=== PATIENT | female | born 1985 ===

== ENCOUNTER 2017-03-23 19:35 | Observation (INO) | payer MEDICAID ==
[2017-03-23 19:35] VITALS: BMI 26.8
[2017-03-23] MEDS ORDERED: Sodium Chloride 0.9% 1,000 ML IV STA ×2 (20:09→22:04)
--- NOTE | 2017-03-23 20:54 | ED PDOC ---
HPI: General Adult Time Seen by Provider: 03/23/17 19:53 Chief Complaint (Nursing): Dizziness/Lightheaded Chief Complaint (Provider): Vomiting History Per: Patient History/Exam Limitations: no limitations Onset/Duration Of Symptoms: Days (x2 days) Current Symptoms Are (Timing): Still Present Additional Complaint(s): 31 y/o female presents to the emergency department with a complaint of nausea, non-bilious vomiting, and chills x2 days. Reports experiencing similar episodes in the past. Denies fever, abdominal pain, diarrhea, constipation and diarrhea. Of note, patient had questionable diagnosis of multiple sclerosis when she was . Past Medical History Reviewed: Historical Data, Nursing Documentation, Vital Signs Vital Signs: Last Vital Signs Temp 99.1 F 03/24/17 15:47 Pulse 69 03/24/17 15:47 Resp 17 03/24/17 15:47 BP 118/74 03/24/17 15:47 Pulse Ox 100 03/24/17 15:47 - Medical History PMH: Gastritis, Multiple Sclerosis Denies: HIV, Pancreatitis, Chronic Kidney Disease - Surgical History Surgical History: No Surg Hx - Family History Family History: States: Unknown Family Hx - Immunization History Hx Tetanus Toxoid Vaccination: No Hx Influenza Vaccination: No Hx Pneumococcal Vaccination: No - Home Medications Home Medications: Ambulatory Orders Medication Instructions Recorded No Known Home Med 03/24/17 - Allergies Allergies/Adverse Reactions: Allergies Allergy/AdvReac Type Severity Reaction Status Date / Time No Known Allergies Allergy Verified 03/23/17 19:37 Review of Systems ROS Statement: Except As Marked, All Systems Reviewed And Found Negative Constitutional: Positive for: Chills. Negative for: Fever Gastrointestinal: Positive for: Nausea, Vomiting (Non bilious). Negative for: Abdominal Pain, Diarrhea, Constipation Physical Exam - Reviewed Nursing Documentation Reviewed: Yes Vital Signs Reviewed: Yes - Physical Exam Appears: Positive for: Non-toxic, In Acute Distress (GI distress) Head Exam: Positive for: ATRAUMATIC, NORMAL INSPECTION, NORMOCEPHALIC Skin: Positive for: Normal Color, Warm, Dry Neck: Positive for: Normal, Supple Cardiovascular/Chest: Positive for: Regular Rate, Rhythm. Negative for: Murmur Respiratory: Positive for: Normal Breath Sounds. Negative for: Accessory Muscle Use, Respiratory Distress Gastrointestinal/Abdominal: Positive for: Normal Exam, Soft. Negative for: Tenderness, Guarding, Rebound Extremity: Positive for: Normal ROM. Negative for: Pedal Edema Neurologic/Psych: Positive for: Alert, Oriented - Laboratory Results Result Diagrams: 03/24/17 10:35 03/23/17 21:13 - ECG O2 Sat by Pulse Oximetry: 100 (RA) Pulse Ox Interpretation: Normal Medical Decision Making Medical Decision Making: Time: 20:09 Initial impression: Gastritis Initial plan: --COMP Metabolic Panel --Lipase --ED Urine Preg --Urine DIP --CBC w/ differential --Pepcid 20 mg IVP --Ondansetron 4 mg IV --Sodium Chloride 1,000 mls/hr --Urinalysis --Reevaluation Scribe Attestation: Documented by Charisse Rocha, acting as a scribe for Anabel Ji MD. Provider Scribe Attestation: All medical record entries made by the Scribe were at my direction and personally dictated by me. I have reviewed the chart and agree that the record accurately reflects my personal performance of the history, physical exam, medical decision making, and the department course for this patient. I have also personally directed, reviewed, and agree with the discharge instructions and disposition. Disposition - Clinical Impression Clinical Impression: Vomiting - Patient ED Disposition Is Patient to be Admitted: Transfer of Care - Disposition Disposition Time: 20:30 Condition: STABLE Patient Signed Over To: Zeyad Mc
--- NOTE | 2017-03-23 21:05 | ED PDOC ---
- Laboratory Results Result Diagrams: 03/23/17 21:13 03/23/17 21:13 - ECG O2 Sat by Pulse Oximetry: 100 (RA) Pulse Ox Interpretation: Normal Medical Decision Making Medical Decision Making: Time:21:00 --Patient was transferred from Dr. Ji to nv. --Pending labs, reassessment and disposition. Scribe Attestation: Documented by Charisse Rocha, acting as a scribe for Zeyad Mc MD. Provider Scribe Attestation: All medical record entries made by the Scribe were at my direction and personally dictated by me. I have reviewed the chart and agree that the record accurately reflects my personal performance of the history, physical exam, medical decision making, and the department course for this patient. I have also personally directed, reviewed, and agree with the discharge instructions and disposition. Disposition - Clinical Impression Clinical Impression: Vomiting - POA Present On Arrival: None - Disposition Disposition: Hospitalized as Observation Patient Disposition Time: 20:00 Condition: FAIR Prescriptions: Ondansetron [Zofran] 4 mg PO Q8H #12 tab Instructions: Acute Nausea and Vomiting (ED) ED OBSERVATION Discharge: Yes Date of observation admission: 03/23/17 Time of observation admission: 20:00 - Observation admission statement Patient is being placed in observation because:: Due to ongoing nausea and vomiting, patient will be in ED for an extended amount of time for multiple rounds of medication - prolonged therapy time. - Goals of Observation Goals of observation are:: Resolution of symptoms - Progress Note Progress Note: 03/23/17 21:25 Patient's vitals are stable, still nauseated. 03/23/17 22:04 Patient complaining of a headache as well. * Toradol 30mg IVP * Reglan 10 IVP * NS IV * Re-eval 03/24/17 23:30 Patient is starting to feel better, will PO challenge 03/25/17 00:46 Upon re-evaluation, patient is feeling much better and is medically stable and ready for discharge. Return precautions hVE been provided and patient is in agreement. Return if symptoms persist or acutely worsen. Patient will follow up with GI as an outpatient. 230 Patient returned to the ER with continued vomiting. Another 1L of NS ordered and zofrna [address] Osorio who accepts admission. 03/24/17 03:24
[2017-03-23 21:16] LABS: BASO # 0.1 K/uL (0.0-0.2); BASO % 0.5 % (0.0-2.0); EOS # 0.1 K/uL (0.0-0.7); EOS % 0.5 % (0.0-4.0); HEMOGLOBIN 14.8 g/dL (12.0-16.0); LYMPH # 2.3 K/uL (1.0-4.3); MEAN CELL VOLUME 93.4 fl (81.0-99.0); MEAN CORPUSCULAR HEMOGLOBIN 31.1 pg (27.0-31.0); MEAN CORPUSCULAR HGB CONC 33.3 g/dL (33.0-37.0); MEAN PLATELET VOLUME 7.6 fl (7.2-11.7); MONO # 0.6 K/uL (0.0-0.8); MONO % 3.1 % (0.0-10.0); NEUT # 15.9 K/uL (1.8-7.0); NEUT % 83.9 % (50.0-75.0); RBC 4.75 Mil/uL (3.80-5.20); RED CELL DISTRIBUTION WIDTH 13.4 % (11.5-14.5); WHITE BLOOD COUNT 18.9 K/uL (4.8-10.8)
[2017-03-23 21:27] LABS: SQUAMOUS EPITHIAL 3 /hpf (0-5); URINE BACTERIA RARE (<OCC); URINE BILIRUBIN NEGATIVE (NEGATIVE); URINE BLOOD MODERATE (NEGATIVE); URINE CLARITY SLIGHTY-CLOUDY (Clear); URINE COLOR YELLOW (YELLOW); URINE GLUCOSE (UA) NEG (Normal); URINE LEUKOCYTE ESTERASE NEG Leu/uL (Negative); URINE NITRATE NEGATIVE (NEGATIVE); URINE PROTEIN 30 mg/dL (NEGATIVE); URINE UROBILINOGEN 0.2-1.0 mg/dL (0.2-1.0)
[2017-03-23 21:30] LABS: ALB/GLOB RATIO 1.4 (1.0-2.1); ALBUMIN 4.8 g/dL (3.5-5.0); ALT/SGPT 34 U/L (9-52); AST/SGOT 27 U/L (14-36); BLOOD UREA NITROGEN 12 mg/dl (7-17); CALCIUM 9.9 mg/dL (8.4-10.2); GFR AFRICAN-AMERICAN > 60; GFR NON-AFRICAN AMERICAN > 60; LIPASE 73 U/L (23-300)
[2017-03-24] MEDS ORDERED: Sodium Chloride 0.9% 1,000 ML IV STA ×2 (03:14→03:15)
[2017-03-24] MEDS ORDERED: Dextrose 5%/0.45% NS 1,000 ML IV SCH (05:15)
[2017-03-24 05:54] VITALS: O2SAT 100
[2017-03-24] MEDS: Apap-Butalbital-Caffeine 325-50-40mg Tab PO PRN ×3 (06:23→15:47)
[2017-03-24 11:09] LABS: HEMOGLOBIN 12.7 g/dL (12.0-16.0); MEAN CELL VOLUME 93.7 fl (81.0-99.0); MEAN CORPUSCULAR HEMOGLOBIN 31.4 pg (27.0-31.0); MEAN CORPUSCULAR HGB CONC 33.5 g/dL (33.0-37.0); RBC 4.04 Mil/uL (3.80-5.20); RED CELL DISTRIBUTION WIDTH 13.4 % (11.5-14.5); WHITE BLOOD COUNT 10.4 K/uL (4.8-10.8)
--- NOTE | 2017-03-24 14:33 | CP.PCM.HP ---
History of Present Illness - History of Present Illness History of Present Illness: CC: Abdominal pain 31 y/o F , evaluated in the ER [facility]AG[facility] for moderate abdominal pain, described as cramping pain, intensity 5:10 associated to vomiting, nausea and chills on DOA with no relief. Pt denied diarrhea, fever. Worsening symptoms: Lightheaded and dizziness for 2 days [employer]. Hx of Multiple Sclerosis. Pt denied: Fever, diarrhea, weakness, numbness, urinary symptoms, CP, palpitation, SOB, HOYT, cough, sick contact. PMHx: Multiple Sclerosis, Gastritis, Multiple admissions for Alcohol Pancreatitis, Gestational DM. Present on Admission - Present on Admission Any Indicators Present on Admission: No Review of Systems - Constitutional Constitutional: Chills - EENT Eyes: Requires Corrective Lenses Ears: Other (negative) Nose/Mouth/Throat: Other (negative) - Cardiovascular Cardiovascular: Other (negative) - Respiratory Respiratory: Other (negative) - Gastrointestinal Gastrointestinal: Abdominal Pain, Cramping, Nausea, Vomiting - Genitourinary Genitourinary: Other (negative) - Musculoskeletal Musculoskeletal: Other (negative) - Integumentary Integumentary: Other (negative) - Neurological Neurological: Other (negative) - Psychiatric Psychiatric: Other (negative) - Endocrine Endocrine: Other (negative) - Hematologic/Lymphatic Hematologic: Other (negative) Past Patient History - Infectious Disease Hx of Infectious Diseases: None - Tetanus Immunizations Tetanus Immunization: Unknown - Past Medical History & Family History Past Medical History?: Yes Pertinent Family History: Grand Mother: Lung Ca Father: Hyperlipidemia. - Past Social History Smoking Status: Former Smoker Alcohol: Other (hx of alcohol abuse) Drugs: Denies Home Situation {Lives}: Alone - CARDIAC Hx Cardiac Disorders: No - PULMONARY Hx Respiratory Disorders: No - NEUROLOGICAL Hx Neurological Disorder: Yes Hx Multiple Sclerosis: Yes (not on any home meds) - HEENT Hx HEENT Problems: Yes Other/Comment: eyeglasses - RENAL Hx Chronic Kidney Disease: No - ENDOCRINE/METABOLIC Hx Endocrine Disorders: Yes Other/Comment: gesational DM only, not on any meds - HEMATOLOGICAL/ONCOLOGICAL Hx Blood Disorders: No Hx AIDS: No Hx Human Immunodeficiency Virus (HIV): No - INTEGUMENTARY Hx Dermatological Problems: No - MUSCULOSKELETAL/RHEUMATOLOGICAL Hx Musculoskeletal Disorders: No Hx Falls: No - GASTROINTESTINAL Hx Gastrointestinal Disorders: Yes (Gastritis) Hx Gastritis: Yes - GENITOURINARY/GYNECOLOGICAL Hx Genitourinary Disorders: No - PSYCHIATRIC Hx Psychophysiologic Disorder: No Hx Substance Use: No - SURGICAL HISTORY Hx Surgeries: Yes Hx Section: Yes (X1) - ANESTHESIA Hx Anesthesia: Yes Hx Anesthesia Reactions: No Hx Malignant Hyperthermia: No Meds Allergies/Adverse Reactions: Allergies Allergy/AdvReac Type Severity Reaction Status Date / Time No Known Allergies Allergy Verified 03/23/17 19:37 Physical Exam - Constitutional Appears: No Acute Distress - Head Exam Head Exam: NORMAL INSPECTION - Eye Exam Eye Exam: PERRL - ENT Exam ENT Exam: Normal Oropharynx - Neck Exam Neck exam: Positive for: Normal Inspection - Respiratory Exam Respiratory Exam: NORMAL BREATHING PATTERN - Cardiovascular Exam Cardiovascular Exam: REGULAR RHYTHM - GI/Abdominal Exam GI & Abdominal Exam: Normal Bowel Sounds, Soft. absent: Distended, Guarding, Rebound, Tenderness - Extremities Exam Extremities exam: Positive for: normal inspection - Back Exam Back exam: NORMAL INSPECTION - Neurological Exam Neurological exam: Alert, Oriented x3 Additional comments: No motor sensory deficit. - Psychiatric Exam Psychiatric exam: Normal Mood - Skin Skin Exam: Normal Color, Warm Results - Vital Signs Recent Vital Signs: Last Vital Signs Temp 98.6 F 03/24/17 07:55 Pulse 77 03/24/17 07:55 Resp 18 03/24/17 07:55 BP 110/70 03/24/17 07:55 Pulse Ox 100 03/24/17 07:55 reviewed J.P. - Labs Result Diagrams: 03/24/17 10:35 03/23/17 21:13 Labs: Laboratory Results - last 24 hr 03/24/17 10:35 WBC 10.4 RBC 4.04 Hgb 12.7 D Hct 37.8 MCV 93.7 MCH 31.4 H MCHC 33.5 RDW 13.4 Plt Count 234 reviewed J.P. Assessment & Plan (1) Acute gastritis Status: Acute Priority: High (2) Head ache Status: Acute Priority: High - Assessment and Plan (Free Text) Plan: Pt on IV clear fluid, Zofran, asymptomatic now, Increase po to bland diet, if can tolerate, Pt is improved and stable to be discharged, see instruction medication sheet, f/u with PMD in a week and Neurology as out Pt. - Date & Time Date: 03/24/17 Time: 09:30
[2017-03-24 15:48] VITALS: BP 118/74; PULSE 69; RESP 17; TEMP 99.1
--- NOTE | 2017-03-30 12:40 | CP.PCM.DIS ---
Provider - Provider Date of Admission: 03/24/17 03:14 Attending physician: Roger Osorio MD Time Spent in preparation of Discharge (in minutes): 15 Diagnosis - Discharge Diagnosis (1) Acute gastritis Status: Acute Priority: High (2) Head ache Status: Acute Priority: High Hospital Course - Lab Results Lab Results: Most Recent Lab Values WBC 10.4 K/uL (4.8-10.8) 03/24/17 10:35 RBC 4.04 Mil/uL (3.80-5.20) 03/24/17 10:35 Hgb 12.7 g/dL (12.0-16.0) D 03/24/17 10:35 Hct 37.8 % (34.0-47.0) 03/24/17 10:35 MCV 93.7 fl (81.0-99.0) 03/24/17 10:35 MCH 31.4 pg (27.0-31.0) H 03/24/17 10:35 MCHC 33.5 g/dL (33.0-37.0) 03/24/17 10:35 RDW 13.4 % (11.5-14.5) 03/24/17 10:35 Plt Count 234 K/uL (130-400) 03/24/17 10:35 MPV 7.6 fl (7.2-11.7) 03/23/17 21:13 Neut % (Auto) 83.9 % (50.0-75.0) H 03/23/17 21:13 Lymph % (Auto) 12.0 % (20.0-40.0) L 03/23/17 21:13 Bureau % (Auto) 3.1 % (0.0-10.0) 03/23/17 21:13 Eos % (Auto) 0.5 % (0.0-4.0) 03/23/17 21:13 Baso % (Auto) 0.5 % (0.0-2.0) 03/23/17 21:13 Neut # 15.9 K/uL (1.8-7.0) H 03/23/17 21:13 Lymph # 2.3 K/uL (1.0-4.3) 03/23/17 21:13 Bureau # 0.6 K/uL (0.0-0.8) 03/23/17 21:13 Eos # 0.1 K/uL (0.0-0.7) 03/23/17 21:13 Baso # 0.1 K/uL (0.0-0.2) 03/23/17 21:13 Sodium 141 mmol/l (132-148) 03/23/17 21:13 Potassium 3.7 MMOL/L (3.6-5.0) 03/23/17 21:13 Chloride 107 mmol/L (98-107) 03/23/17 21:13 Carbon Dioxide 20 mmol/L (22-30) L 03/23/17 21:13 Anion Gap 18 (10-20) 03/23/17 21:13 BUN 12 mg/dl (7-17) 03/23/17 21:13 Creatinine 0.6 mg/dL (0.7-1.2) L 03/23/17 21:13 Est GFR ( Amer) > 60 03/23/17 21:13 Est GFR (Non-Af Amer) > 60 03/23/17 21:13 Random Glucose 104 mg/dL (65-105) 03/23/17 21:13 Calcium 9.9 mg/dL (8.4-10.2) 03/23/17 21:13 Total Bilirubin 0.6 mg/dl (0.2-1.3) 03/23/17 21:13 AST 27 U/L (14-36) 03/23/17 21:13 ALT 34 U/L (9-52) 03/23/17 21:13 Alkaline Phosphatase 91 U/L (38-126) 03/23/17 21:13 Total Protein 8.4 G/DL (6.3-8.2) H 03/23/17 21:13 Albumin 4.8 g/dL (3.5-5.0) 03/23/17 21:13 Globulin 3.5 gm/dL (2.2-3.9) 03/23/17 21:13 Albumin/Globulin Ratio 1.4 (1.0-2.1) 03/23/17 21:13 Lipase 73 U/L (23-300) 03/23/17 21:13 Urine Color Yellow (YELLOW) 03/23/17 21:13 Urine Clarity Slighty-cloudy (Clear) 03/23/17 21:13 Urine pH 6.0 (5.0-8.0) 03/23/17 21:13 Ur Specific [place] 1.028 (1.003-1.030) 03/23/17 21:13 Urine Protein 30 mg/dL (NEGATIVE) 03/23/17 21:13 Urine Glucose (UA) Neg mg/dL (Normal) 03/23/17 21:13 Urine Ketones 20 mg/dL (NEGATIVE) 03/23/17 21:13 Urine Blood Moderate (NEGATIVE) 03/23/17 21:13 Urine Nitrate Negative (NEGATIVE) 03/23/17 21:13 Urine Bilirubin Negative (NEGATIVE) 03/23/17 21:13 Urine Urobilinogen 0.2-1.0 mg/dL (0.2-1.0) 03/23/17 21:13 Ur Leukocyte Esterase Neg Mayra/uL (Negative) 03/23/17 21:13 Urine RBC (Auto) 25 /hpf (0-3) H 03/23/17 21:13 Urine Microscopic WBC 2 /hpf (0-5) 03/23/17 21:13 Ur Squamous Epith Cells 3 /hpf (0-5) 03/23/17 21:13 Urine Bacteria Rare (<OCC) 03/23/17 21:13 - Hospital Course Hospital Course: Patient admitted for vomiting. Pt treated with IV clear fluid and Zofran. Pt is improved and stable to be discharged, see instruction medication sheet, f/u with PMD in a week and Neurology as out Pt. - Date & Time of H&P Date of H&P: 03/24/17 Time of H&P: 09:30 Discharge Exam - Head Exam Head Exam: NORMAL INSPECTION Discharge Plan - Follow Up Plan Condition: STABLE Disposition: HOME/ ROUTINE Patient education suggested?: Yes Instructions: Ondansetron (By mouth), Acute Nausea and Vomiting (ED) Additional Instructions: follow up with primary md Referrals: Edgar Ellison MD, PhD [Staff Provider] - Antwon Bowden MD [Staff Provider] -
== END 2017-03-24 17:52 | disposition home or self-care (01) ==
LOC: H.ER 19:35 → H.ERHOLD 03-24 03:14 → H.MEDSURG1 03-24 04:54
PROVIDERS: ADMIT Internal Medicine Pulmonary Disease; ATTEND Internal Medicine Pulmonary Disease
DX: K29.00 Acute gastritis without bleeding (principal); R51 Headache